=== PATIENT | female | born 1945 | race Caucasian/White ===

== ENCOUNTER 2021-06-14 14:09 | Inpatient (IN) | payer MEDICARE, OTHER ==
[2021-06-14 14:36] LABS: #Basophils 0.1 10x3/uL (0.0-0.2); #Eosinphils 0.4 10x3/uL (0.0-0.5); #Monocytes 0.8 10x3/uL (0.0-1.1); #Neutrophils 14.8 10x3/uL (1.5-8.4); %Basophils 0.7 % (0.0-2.0); %Eosinophils 2.5 % (0.0-6.0); %Lymphocytes 6.6 % (18.0-47.0); %Monocytes 4.2 % (0.0-10.0); %Neutrophils 83.5 % (40.0-75.0); Hemoglobin 8.4 g/dL (12.0-15.5); Mean Corpuscular HGB CONC 29.8 g/dL (32.0-36.0); Mean Corpuscular Hemoglobin 29.2 pg (27.0-33.0); Mean Corpuscular Volume 97.9 fl (81.6-98.3); Mean Platelet Volume 9.7 fl (7.4-10.4); Platelet Count 314 10x3/uL (150-450); RBC Distribution Width 15.4 % (11.5-14.5); Red Blood Cell (RBC) Count 2.88 10x6/uL (3.90-5.03); White Blood Cell (WBC) Count 17.7 10x3/uL (3.5-10.5)
[2021-06-14] MEDS ORDERED: Calcium Gluc 4.6 MEQ/10 ML (100 MG/ML) ONE (14:37)
[2021-06-14 14:48] LABS: INR-International Normal Ratio 1.1; PTT 25.3 sec (22.0-33.0); Prothrombin Time 12.2 sec (9.5-12.1)
[2021-06-14 14:52] LABS: ALT (SGPT) 26 U/L (8-55); AST (SGOT) 31 U/L (5-34); Albumin 3.4 g/dL (3.4-4.8); Alkaline Phosphatase 107 U/L (40-110); Anion Gap 17 mmol/L (10-20); BUN (Urea Nitrogen) 29 mg/dL (9.8-20.1); Bilirubin, Total 0.7 mg/dL (0.2-1.2); Calc. Creatinine Clearance 0 mL/min (70-130); Carbon Dioxide 28 mmol/L (23-31); Chloride 99 mmol/L (98-107); Globulin 4.1 g/dL (2.4-3.5); Glucose 363 mg/dL (83-110); Potassium 5.1 mmol/L (3.5-5.1); Protein, Total 7.5 g/dL (5.8-8.1); Sodium 139 mmol/L (136-145)
[2021-06-14 15:16] LABS: Hypochromia SLIGHT = 6-15 cells (100X) (0-5/hpf); Platelet Morphology Comment Appears Adequate
[2021-06-14 15:29] LABS: SARS-CoV-2 NAA Rapid Test Not Detected (NotDetected)
[2021-06-14] MEDS ORDERED: cefTRIAXone\\ROCEPHIN 2 GM VIAL ONE (15:30)
[2021-06-14] MEDS ORDERED: Azithromycin 500 MG VIAL ONE (15:54)
[2021-06-14] MEDS ORDERED: Communication Order-Pharmacy FS SCH (16:30)
[2021-06-14] MEDS ORDERED: Acetaminophen 325 MG TAB PO PRN (17:10)
[2021-06-14] MEDS ORDERED: Enoxaparin Sodium 40 MG/0.4 ML SYRINGE SC SCH ×2 (17:15→21:00)
[2021-06-14 17:46] LABS: Troponin I 0.019 ng/mL (< 0.028)
[2021-06-14 17:56] VITALS: BMI 52.4
[2021-06-14] MEDS ORDERED: Furosemide 40 MG/4 ML VIAL SLOW IVP SCH ×2 (18:30→21:00)
[2021-06-14] MEDS ORDERED: Dextrose 50% Abboject 50 ML SYRINGE SLOW IVP PRN (20:36)
[2021-06-14] MEDS ORDERED: Dextrose 5% in Water 1,000 ML IV PRN (20:36)
[2021-06-14 21:50] LABS: Troponin I 0.024 ng/mL (< 0.028)
[2021-06-14] MEDS: Rosuvastatin 10 MG TAB PO SCH (22:07)
[2021-06-14] MEDS: Clindamycin/D5W 900 MG in Premix Bag 1 BAG IVPB SCH (22:07)
[2021-06-14] MEDS: HumaLOG 300 UNITS/3 ML VIAL SC PRN (22:09)
[2021-06-15 04:04] LABS: #Basophils 0.1 10x3/uL (0.0-0.2); #Eosinphils 0.3 10x3/uL (0.0-0.5); #Monocytes 1.1 10x3/uL (0.0-1.1); #Neutrophils 11.1 10x3/uL (1.5-8.4); %Basophils 0.7 % (0.0-2.0); %Eosinophils 1.8 % (0.0-6.0); %Lymphocytes 13.5 % (18.0-47.0); %Monocytes 7.7 % (0.0-10.0); %Neutrophils 74.8 % (40.0-75.0); Hemoglobin 7.6 g/dL (12.0-15.5); Mean Corpuscular HGB CONC 29.9 g/dL (32.0-36.0); Mean Corpuscular Hemoglobin 28.8 pg (27.0-33.0); Mean Corpuscular Volume 96.2 fl (81.6-98.3); Mean Platelet Volume 9.8 fl (7.4-10.4); Platelet Count 275 10x3/uL (150-450); RBC Distribution Width 15.3 % (11.5-14.5); Red Blood Cell (RBC) Count 2.64 10x6/uL (3.90-5.03); White Blood Cell (WBC) Count 14.9 10x3/uL (3.5-10.5)
[2021-06-15 04:10] LABS: INR-International Normal Ratio 1.2; PTT 28.8 sec (22.0-33.0); Prothrombin Time 12.7 sec (9.5-12.1)
[2021-06-15 04:11] LABS: ALT (SGPT) 23 U/L (8-55); AST (SGOT) 24 U/L (5-34); Albumin 3.3 g/dL (3.4-4.8); Alkaline Phosphatase 96 U/L (40-110); Anion Gap 18 mmol/L (10-20); BUN (Urea Nitrogen) 30 mg/dL (9.8-20.1); Bilirubin, Total 0.4 mg/dL (0.2-1.2); Calc. Creatinine Clearance 57 mL/min (70-130); Calcium 7.6 mg/dL (7.8-10.44); Carbon Dioxide 26 mmol/L (23-31); Chloride 101 mmol/L (98-107); Globulin 3.9 g/dL (2.4-3.5); Glucose 182 mg/dL (83-110); Protein, Total 7.2 g/dL (5.8-8.1); Sodium 141 mmol/L (136-145)
[2021-06-15] MEDS: Clindamycin/D5W 900 MG in Premix Bag 1 BAG IVPB SCH ×3 (06:37→21:26)
[2021-06-15] MEDS ORDERED: Carvedilol 12.5 MG TAB PO SCH (08:00)
[2021-06-15] MEDS: Spironolactone 25 MG TAB PO SCH (08:36)
[2021-06-15] MEDS: Lisinopril 10 MG TAB PO SCH (08:37)
[2021-06-15] MEDS: Aspirin 81 mg Enteric Coated Tablet PO SCH (08:45)
[2021-06-15] MEDS ORDERED: Enoxaparin Sodium 40 MG/0.4 ML SYRINGE SC SCH (09:00)
[2021-06-15] MEDS ORDERED: Furosemide 20 MG TAB PO SCH ×2 (09:00)
[2021-06-15] MEDS ORDERED: Furosemide 40 MG/4 ML VIAL SLOW IVP SCH ×3 (09:00→13:30)
[2021-06-15] MEDS ORDERED: Acetylcysteine 800 MG/4 ML VIAL PO SCH (09:00)
[2021-06-15] MEDS ORDERED: Lisinopril 10 MG TAB PO SCH (09:00)
[2021-06-15] MEDS ORDERED: Lidocaine 1% PF 5 ML VIAL ONE (09:15)
[2021-06-15] MEDS ORDERED: Nitroglycerin 50 MG/250 ML BOT 250 ML ONE (09:16)
[2021-06-15] MEDS ORDERED: Adenosine 6 MG/2 ML VIAL ONE (09:16)
[2021-06-15] MEDS ORDERED: Verapamil 5 MG/2 ML VIAL ONE (09:16)
[2021-06-15] MEDS ORDERED: Heparin 10,000 UNITS/ 10 ML VIAL ONE (09:16)
[2021-06-15] MEDS ORDERED: Fentanyl 100 MCG/2 ML VIAL ONE (09:17)
[2021-06-15] MEDS ORDERED: Midazolam HCl 2 mg/2 ml Vial ONE (09:17)
[2021-06-15] MEDS ORDERED: Bivalirudin 250 MG VIAL ONE (09:17)
[2021-06-15] MEDS: HumaLOG 300 UNITS/3 ML VIAL SC PRN ×3 (12:13→21:27)
[2021-06-15] MEDS ORDERED: Nitroglycerin 0.4 MG TAB (25 Tab Bottle) SL PRN (12:22)
[2021-06-15] MEDS ORDERED: Acetaminophen/Codeine 30-300mg Tablet PO PRN ×2 (12:22)
[2021-06-15] MEDS ORDERED: Sodium Chloride 0.9% 200 ML IV PRN (12:22)
[2021-06-15] MEDS: Furosemide 40 MG TAB PO SCH ×2 (15:55→21:23)
[2021-06-15] MEDS ORDERED: Warfarin Sodium 10 MG TAB PO SCH (17:00)
[2021-06-15] MEDS: Rosuvastatin 10 MG TAB PO SCH (21:23)
[2021-06-16 03:51] LABS: #Basophils 0.1 10x3/uL (0.0-0.2); #Eosinphils 0.2 10x3/uL (0.0-0.5); #Monocytes 1.4 10x3/uL (0.0-1.1); #Neutrophils 13.3 10x3/uL (1.5-8.4); %Basophils 0.7 % (0.0-2.0); %Eosinophils 1.4 % (0.0-6.0); %Lymphocytes 7.2 % (18.0-47.0); %Monocytes 8.6 % (0.0-10.0); %Neutrophils 80.3 % (40.0-75.0); Hemoglobin 10.2 g/dL (12.0-15.5); Mean Corpuscular HGB CONC 31.3 g/dL (32.0-36.0); Mean Corpuscular Hemoglobin 29.7 pg (27.0-33.0); Mean Corpuscular Volume 94.8 fl (81.6-98.3); Mean Platelet Volume 9.4 fl (7.4-10.4); Platelet Count 275 10x3/uL (150-450); RBC Distribution Width 15.3 % (11.5-14.5); Red Blood Cell (RBC) Count 3.44 10x6/uL (3.90-5.03); White Blood Cell (WBC) Count 16.6 10x3/uL (3.5-10.5)
[2021-06-16 03:56] LABS: Anion Gap 20 mmol/L (10-20); BUN (Urea Nitrogen) 25 mg/dL (9.8-20.1); Calc. Creatinine Clearance 64 mL/min (70-130); Calcium 7.6 mg/dL (7.8-10.44); Carbon Dioxide 28 mmol/L (23-31); Chloride 96 mmol/L (98-107); Glucose 263 mg/dL (83-110); Potassium 3.8 mmol/L (3.5-5.1); Sodium 140 mmol/L (136-145)
[2021-06-16 04:04] LABS: INR-International Normal Ratio 1.2; Prothrombin Time 12.9 sec (9.5-12.1)
[2021-06-16] MEDS: Clindamycin/D5W 900 MG in Premix Bag 1 BAG IVPB SCH ×2 (06:19→13:40)
[2021-06-16] MEDS: Furosemide 40 MG TAB PO SCH (06:19)
[2021-06-16] MEDS: HumaLOG 300 UNITS/3 ML VIAL SC PRN ×4 (08:05→22:03)
[2021-06-16] MEDS: Spironolactone 25 MG TAB PO SCH (08:06)
[2021-06-16] MEDS: Lisinopril 10 MG TAB PO SCH (09:17)
[2021-06-16] MEDS: Aspirin 81 mg Enteric Coated Tablet PO SCH (09:17)
[2021-06-16] MEDS: Azithromycin 500 MG in Sodium Chloride 0.9% 250 ML 250 ML IVPB SCH (10:06)
[2021-06-16] MEDS: cefTRIAXone\\ROCEPHIN 2 GM in Sodium Chloride 0.9% 100 ML IVPB SCH (21:42)
[2021-06-16] MEDS: Rosuvastatin 10 MG TAB PO SCH (21:42)
[2021-06-17 01:30] LABS: Legionella Urinary Ag Negative (Negative); Strep pneumo Urine Ag NEGATIVE (NEGATIVE)
[2021-06-17] MEDS: HumaLOG 300 UNITS/3 ML VIAL SC PRN ×4 (03:46→22:16)
[2021-06-17 04:55] LABS: #Basophils 0.1 10x3/uL (0.0-0.2); #Eosinphils 0.4 10x3/uL (0.0-0.5); #Monocytes 1.3 10x3/uL (0.0-1.1); #Neutrophils 12.2 10x3/uL (1.5-8.4); %Basophils 0.8 % (0.0-2.0); %Eosinophils 2.6 % (0.0-6.0); %Lymphocytes 10.1 % (18.0-47.0); %Monocytes 8.1 % (0.0-10.0); %Neutrophils 76.9 % (40.0-75.0); Hemoglobin 10.4 g/dL (12.0-15.5); Mean Corpuscular HGB CONC 31.4 g/dL (32.0-36.0); Mean Corpuscular Volume 95.4 fl (81.6-98.3); Mean Platelet Volume 9.5 fl (7.4-10.4); Platelet Count 283 10x3/uL (150-450); RBC Distribution Width 15.3 % (11.5-14.5); Red Blood Cell (RBC) Count 3.47 10x6/uL (3.90-5.03); White Blood Cell (WBC) Count 15.9 10x3/uL (3.5-10.5)
[2021-06-17 05:08] LABS: Anion Gap 17 mmol/L (10-20); BUN (Urea Nitrogen) 29 mg/dL (9.8-20.1); Calc. Creatinine Clearance 59 mL/min (70-130); Calcium 7.6 mg/dL (7.8-10.44); Carbon Dioxide 31 mmol/L (23-31); Chloride 95 mmol/L (98-107); Glucose 318 mg/dL (83-110); Magnesium 1.9 mg/dL (1.6-2.6); Phosphorus 4.5 mg/dL (2.3-4.7); Potassium 3.6 mmol/L (3.5-5.1); Sodium 139 mmol/L (136-145)
[2021-06-17] MEDS: Levothyroxine Sodium 100 MCG TAB PO SCH (05:56)
[2021-06-17] MEDS: Levothyroxine Sodium 75 MCG TAB PO SCH (05:56)
[2021-06-17] MEDS ORDERED: Non-Formulary Medication 1 EACH (Levothyroxine Sodium [Levothyroxine] 175 MCG Capsule) PO SCH (09:00)
[2021-06-17] MEDS ORDERED: Enoxaparin Sodium 40 MG/0.4 ML SYRINGE SC SCH (09:00)
[2021-06-17] MEDS: Spironolactone 25 MG TAB PO SCH (09:39)
[2021-06-17] MEDS: Lisinopril 10 MG TAB PO SCH (09:39)
[2021-06-17] MEDS: Aspirin 81 mg Enteric Coated Tablet PO SCH (09:39)
[2021-06-17] MEDS: Azithromycin 500 MG in Sodium Chloride 0.9% 250 ML 250 ML IVPB SCH (09:39)
[2021-06-17] MEDS ORDERED: Potassium Chloride 20 MEQ TAB PO SCH (12:00)
[2021-06-17] MEDS ORDERED: Lantus 1000 UNITS/10 ML VIAL SC SCH (21:00)
[2021-06-17] MEDS: Rosuvastatin 10 MG TAB PO SCH (22:12)
[2021-06-17] MEDS: Carvedilol 12.5 MG TAB PO SCH (22:13)
[2021-06-17] MEDS: cefTRIAXone\\ROCEPHIN 2 GM in Sodium Chloride 0.9% 100 ML IVPB SCH (22:32)
[2021-06-18 05:58] LABS: #Basophils 0.1 10x3/uL (0.0-0.2); #Eosinphils 0.8 10x3/uL (0.0-0.5); #Monocytes 1.2 10x3/uL (0.0-1.1); #Neutrophils 11.5 10x3/uL (1.5-8.4); %Basophils 0.6 % (0.0-2.0); %Lymphocytes 9.5 % (18.0-47.0); %Monocytes 7.6 % (0.0-10.0); %Neutrophils 76.2 % (40.0-75.0); Hemoglobin 9.7 g/dL (12.0-15.5); Mean Corpuscular HGB CONC 30.1 g/dL (32.0-36.0); Mean Corpuscular Hemoglobin 29.4 pg (27.0-33.0); Mean Corpuscular Volume 97.6 fl (81.6-98.3); Mean Platelet Volume 9.4 fl (7.4-10.4); Platelet Count 258 10x3/uL (150-450); White Blood Cell (WBC) Count 15.1 10x3/uL (3.5-10.5)
[2021-06-18 06:11] LABS: Anion Gap 15 mmol/L (10-20); BUN (Urea Nitrogen) 27 mg/dL (9.8-20.1); Calc. Creatinine Clearance 57 mL/min (70-130); Calcium 7.2 mg/dL (7.8-10.44); Carbon Dioxide 31 mmol/L (23-31); Chloride 97 mmol/L (98-107); Glucose 280 mg/dL (83-110); Phosphorus 4.3 mg/dL (2.3-4.7); Potassium 4.1 mmol/L (3.5-5.1); Sodium 139 mmol/L (136-145)
[2021-06-18] MEDS: Levothyroxine Sodium 75 MCG TAB PO SCH (06:36)
[2021-06-18] MEDS: Levothyroxine Sodium 100 MCG TAB PO SCH (06:36)
[2021-06-18] MEDS: HumaLOG 300 UNITS/3 ML VIAL SC PRN ×4 (07:05→22:42)
[2021-06-18] MEDS ORDERED: Lantus 1000 UNITS/10 ML VIAL SC SCH ×4 (09:00→21:00)
[2021-06-18] MEDS ORDERED: Enoxaparin Sodium 120 MG/0.8 ML SYRINGE SC SCH (09:00)
[2021-06-18] MEDS: Spironolactone 25 MG TAB PO SCH (10:09)
[2021-06-18] MEDS: Furosemide 40 MG TAB PO SCH (10:09)
[2021-06-18] MEDS: Magnesium Oxide 400 MG TAB PO SCH (10:09)
[2021-06-18] MEDS: Aspirin 81 mg Enteric Coated Tablet PO SCH (10:09)
[2021-06-18] MEDS: Lisinopril 10 MG TAB PO SCH (10:09)
[2021-06-18] MEDS: Carvedilol 12.5 MG TAB PO SCH ×2 (10:09→21:48)
[2021-06-18] MEDS: Azithromycin 500 MG in Sodium Chloride 0.9% 250 ML 250 ML IVPB SCH (10:10)
[2021-06-18] MEDS: Rosuvastatin 10 MG TAB PO SCH (21:48)
[2021-06-18] MEDS: Enoxaparin Sodium 120 MG/0.8 ML SYRINGE SC SCH (21:51)
[2021-06-18] MEDS: cefTRIAXone\\ROCEPHIN 2 GM in Sodium Chloride 0.9% 100 ML IVPB SCH (22:10)
[2021-06-19] MEDS: Levothyroxine Sodium 100 MCG TAB PO SCH (05:27)
[2021-06-19] MEDS: Levothyroxine Sodium 75 MCG TAB PO SCH (05:27)
[2021-06-19] MEDS: HumaLOG 300 UNITS/3 ML VIAL SC PRN ×3 (05:34→16:39)
[2021-06-19 05:39] LABS: #Basophils 0.1 10x3/uL (0.0-0.2); #Eosinphils 0.9 10x3/uL (0.0-0.5); #Neutrophils 10.6 10x3/uL (1.5-8.4); %Basophils 0.7 % (0.0-2.0); %Eosinophils 5.9 % (0.0-6.0); %Lymphocytes 12.1 % (18.0-47.0); %Monocytes 6.7 % (0.0-10.0); %Neutrophils 73.8 % (40.0-75.0); Hemoglobin 9.8 g/dL (12.0-15.5); Mean Corpuscular HGB CONC 31.2 g/dL (32.0-36.0); Mean Corpuscular Hemoglobin 29.9 pg (27.0-33.0); Mean Corpuscular Volume 95.7 fl (81.6-98.3); Mean Platelet Volume 9.5 fl (7.4-10.4); Platelet Count 274 10x3/uL (150-450); Red Blood Cell (RBC) Count 3.28 10x6/uL (3.90-5.03); White Blood Cell (WBC) Count 14.3 10x3/uL (3.5-10.5)
[2021-06-19 05:56] LABS: Anion Gap 16 mmol/L (10-20); BUN (Urea Nitrogen) 32 mg/dL (9.8-20.1); Calc. Creatinine Clearance 52 mL/min (70-130); Carbon Dioxide 31 mmol/L (23-31); Chloride 98 mmol/L (98-107); Glucose 156 mg/dL (83-110); Phosphorus 3.8 mg/dL (2.3-4.7); Sodium 141 mmol/L (136-145)
[2021-06-19] MEDS: Calcium Carbonate 500 MG ChewTAB PO SCH ×2 (08:46→20:25)
[2021-06-19] MEDS: Azithromycin 250 MG TAB PO SCH (08:47)
[2021-06-19] MEDS: Carvedilol 12.5 MG TAB PO SCH ×2 (08:47→20:25)
[2021-06-19] MEDS: Magnesium Oxide 400 MG TAB PO SCH (08:48)
[2021-06-19] MEDS: Aspirin 81 mg Enteric Coated Tablet PO SCH (08:48)
[2021-06-19] MEDS: Lisinopril 10 MG TAB PO SCH (08:48)
[2021-06-19] MEDS: Furosemide 40 MG TAB PO SCH (08:48)
[2021-06-19] MEDS: Spironolactone 25 MG TAB PO SCH (08:49)
[2021-06-19] MEDS: Enoxaparin Sodium 120 MG/0.8 ML SYRINGE SC SCH ×2 (08:50→20:28)
[2021-06-19] MEDS: Lantus 1000 UNITS/10 ML VIAL SC SCH ×2 (08:51→22:00)
[2021-06-19] MEDS ORDERED: Milk Of Magnesia 30 ML UDCUP PO SCH (14:00)
[2021-06-19] MEDS ORDERED: Polyethylene Glycol 3350 17 GM Packet PO SCH (14:00)
[2021-06-19] MEDS: Rosuvastatin 10 MG TAB PO SCH (20:25)
[2021-06-19] MEDS: cefTRIAXone\\ROCEPHIN 2 GM in Sodium Chloride 0.9% 100 ML IVPB SCH (21:58)
[2021-06-19] MEDS: Senokot S 8.6-50 MG TAB PO SCH (22:05)
[2021-06-20 05:42] LABS: #Basophils 0.1 10x3/uL (0.0-0.2); #Eosinphils 0.7 10x3/uL (0.0-0.5); #Neutrophils 9.5 10x3/uL (1.5-8.4); %Basophils 0.9 % (0.0-2.0); %Eosinophils 5.6 % (0.0-6.0); %Lymphocytes 13.2 % (18.0-47.0); %Monocytes 7.7 % (0.0-10.0); %Neutrophils 71.8 % (40.0-75.0); Mean Corpuscular HGB CONC 31.2 g/dL (32.0-36.0); Mean Corpuscular Hemoglobin 29.5 pg (27.0-33.0); Mean Corpuscular Volume 94.7 fl (81.6-98.3); Platelet Count 254 10x3/uL (150-450); RBC Distribution Width 14.9 % (11.5-14.5); Red Blood Cell (RBC) Count 3.39 10x6/uL (3.90-5.03); White Blood Cell (WBC) Count 13.2 10x3/uL (3.5-10.5)
[2021-06-20 05:57] LABS: Anion Gap 16 mmol/L (10-20); BUN (Urea Nitrogen) 34 mg/dL (9.8-20.1); Calc. Creatinine Clearance 54 mL/min (70-130); Calcium 7.3 mg/dL (7.8-10.44); Carbon Dioxide 31 mmol/L (23-31); Chloride 98 mmol/L (98-107); Glucose 155 mg/dL (83-110); Magnesium 2.2 mg/dL (1.6-2.6); Phosphorus 4.2 mg/dL (2.3-4.7); Potassium 4.3 mmol/L (3.5-5.1); Sodium 141 mmol/L (136-145)
[2021-06-20] MEDS: Levothyroxine Sodium 100 MCG TAB PO SCH (06:21)
[2021-06-20] MEDS: Levothyroxine Sodium 75 MCG TAB PO SCH (06:21)
[2021-06-20] MEDS: Azithromycin 250 MG TAB PO SCH (10:00)
[2021-06-20] MEDS: Lisinopril 10 MG TAB PO SCH (10:01)
[2021-06-20] MEDS: Aspirin 81 mg Enteric Coated Tablet PO SCH (10:01)
[2021-06-20] MEDS: Magnesium Oxide 400 MG TAB PO SCH (10:01)
[2021-06-20] MEDS: Calcium Carbonate 500 MG ChewTAB PO SCH ×2 (10:01→20:54)
[2021-06-20] MEDS: Carvedilol 12.5 MG TAB PO SCH ×2 (10:01→20:55)
[2021-06-20] MEDS: Spironolactone 25 MG TAB PO SCH (10:01)
[2021-06-20] MEDS: Furosemide 40 MG TAB PO SCH (10:01)
[2021-06-20] MEDS: Polyethylene Glycol 3350 17 GM Packet PO SCH (10:02)
[2021-06-20] MEDS: Lantus 1000 UNITS/10 ML VIAL SC SCH ×2 (10:02→20:55)
[2021-06-20] MEDS: Enoxaparin Sodium 120 MG/0.8 ML SYRINGE SC SCH ×2 (10:02→20:55)
[2021-06-20] MEDS: Senokot S 8.6-50 MG TAB PO SCH ×2 (10:02→21:06)
[2021-06-20] MEDS: HumaLOG 300 UNITS/3 ML VIAL SC PRN ×3 (12:42→20:56)
[2021-06-20] MEDS: AMOXicillin 250 MG CAP PO SCH ×2 (16:00→20:55)
[2021-06-20] MEDS ORDERED: Dextrose 5% in Water 1,000 ML IV PRN (17:12)
[2021-06-20] MEDS ORDERED: Dextrose 50% Abboject 50 ML SYRINGE SLOW IVP PRN (17:12)
[2021-06-20] MEDS: Rosuvastatin 10 MG TAB PO SCH (20:55)
[2021-06-21 05:23] LABS: Anion Gap 15 mmol/L (10-20); BUN (Urea Nitrogen) 31 mg/dL (9.8-20.1); Calc. Creatinine Clearance 56 mL/min (70-130); Calcium 7.7 mg/dL (7.8-10.44); Carbon Dioxide 32 mmol/L (23-31); Chloride 98 mmol/L (98-107); Glucose 143 mg/dL (83-110); Magnesium 2.2 mg/dL (1.6-2.6); Phosphorus 4.6 mg/dL (2.3-4.7); Potassium 4.2 mmol/L (3.5-5.1); Sodium 141 mmol/L (136-145)
[2021-06-21 05:42] LABS: #Basophils 0.1 10x3/uL (0.0-0.2); #Eosinphils 0.7 10x3/uL (0.0-0.5); #Monocytes 0.9 10x3/uL (0.0-1.1); #Neutrophils 8.5 10x3/uL (1.5-8.4); %Basophils 0.8 % (0.0-2.0); %Eosinophils 5.7 % (0.0-6.0); %Lymphocytes 13.7 % (18.0-47.0); %Monocytes 7.2 % (0.0-10.0); %Neutrophils 71.8 % (40.0-75.0); Hemoglobin 9.9 g/dL (12.0-15.5); Mean Corpuscular HGB CONC 31.4 g/dL (32.0-36.0); Mean Corpuscular Hemoglobin 29.6 pg (27.0-33.0); Mean Corpuscular Volume 94.3 fl (81.6-98.3); Mean Platelet Volume 9.5 fl (7.4-10.4); Platelet Count 252 10x3/uL (150-450); RBC Distribution Width 14.8 % (11.5-14.5); Red Blood Cell (RBC) Count 3.34 10x6/uL (3.90-5.03); White Blood Cell (WBC) Count 11.9 10x3/uL (3.5-10.5)
[2021-06-21] MEDS: Levothyroxine Sodium 75 MCG TAB PO SCH (05:51)
[2021-06-21] MEDS: Levothyroxine Sodium 100 MCG TAB PO SCH (05:51)
[2021-06-21] MEDS: HumaLOG 300 UNITS/3 ML VIAL SC SCH ×3 (09:44→17:51)
[2021-06-21] MEDS: Spironolactone 25 MG TAB PO SCH (09:45)
[2021-06-21] MEDS: AMOXicillin 250 MG CAP PO SCH ×3 (09:45→22:55)
[2021-06-21] MEDS: Lantus 1000 UNITS/10 ML VIAL SC SCH ×2 (09:45→22:56)
[2021-06-21] MEDS: Lisinopril 10 MG TAB PO SCH (09:45)
[2021-06-21] MEDS: Calcium Carbonate 500 MG ChewTAB PO SCH ×2 (09:45→22:55)
[2021-06-21] MEDS: Carvedilol 12.5 MG TAB PO SCH ×2 (09:45→22:56)
[2021-06-21] MEDS: Enoxaparin Sodium 120 MG/0.8 ML SYRINGE SC SCH ×2 (09:45→22:54)
[2021-06-21] MEDS: Magnesium Oxide 400 MG TAB PO SCH (09:45)
[2021-06-21] MEDS: Aspirin 81 mg Enteric Coated Tablet PO SCH (09:45)
[2021-06-21] MEDS: Furosemide 40 MG TAB PO SCH ×3 (09:46→15:13)
[2021-06-21] MEDS: Polyethylene Glycol 3350 17 GM Packet PO SCH (09:46)
[2021-06-21] MEDS: Azithromycin 250 MG TAB PO SCH (09:46)
[2021-06-21] MEDS: Senokot S 8.6-50 MG TAB PO SCH ×2 (09:46→22:56)
[2021-06-21 19:03] LABS: SARS-CoV-2 PCR by NAA Not Detected (NotDetected)
[2021-06-21] MEDS: Rosuvastatin 10 MG TAB PO SCH (22:56)
[2021-06-21] MEDS: HumaLOG 300 UNITS/3 ML VIAL SC PRN (22:57)
[2021-06-22 04:09] LABS: #Basophils 0.1 10x3/uL (0.0-0.2); #Eosinphils 0.6 10x3/uL (0.0-0.5); #Neutrophils 8.4 10x3/uL (1.5-8.4); %Basophils 0.9 % (0.0-2.0); %Eosinophils 5.2 % (0.0-6.0); %Lymphocytes 13.3 % (18.0-47.0); %Monocytes 8.7 % (0.0-10.0); %Neutrophils 70.9 % (40.0-75.0); Hemoglobin 9.3 g/dL (12.0-15.5); Mean Corpuscular HGB CONC 30.7 g/dL (32.0-36.0); Mean Corpuscular Volume 94.4 fl (81.6-98.3); Mean Platelet Volume 9.6 fl (7.4-10.4); Platelet Count 235 10x3/uL (150-450); RBC Distribution Width 14.8 % (11.5-14.5); Red Blood Cell (RBC) Count 3.21 10x6/uL (3.90-5.03); White Blood Cell (WBC) Count 11.8 10x3/uL (3.5-10.5)
[2021-06-22 04:28] LABS: Anion Gap 16 mmol/L (10-20); BUN (Urea Nitrogen) 37 mg/dL (9.8-20.1); Calc. Creatinine Clearance 46 mL/min (70-130); Calcium 7.8 mg/dL (7.8-10.44); Carbon Dioxide 31 mmol/L (23-31); Chloride 97 mmol/L (98-107); Glucose 190 mg/dL (83-110); Magnesium 2.2 mg/dL (1.6-2.6); Phosphorus 5.3 mg/dL (2.3-4.7); Potassium 4.2 mmol/L (3.5-5.1); Sodium 140 mmol/L (136-145)
[2021-06-22] MEDS: Senokot S 8.6-50 MG TAB PO SCH ×2 (08:31→21:53)
[2021-06-22] MEDS: Polyethylene Glycol 3350 17 GM Packet PO SCH (08:31)
[2021-06-22] MEDS: Calcium Carbonate 500 MG ChewTAB PO SCH (08:32)
[2021-06-22] MEDS: Carvedilol 12.5 MG TAB PO SCH ×2 (08:32→21:32)
[2021-06-22] MEDS: Levothyroxine Sodium 75 MCG TAB PO SCH (08:32)
[2021-06-22] MEDS: Levothyroxine Sodium 100 MCG TAB PO SCH (08:33)
[2021-06-22] MEDS: Aspirin 81 mg Enteric Coated Tablet PO SCH (08:33)
[2021-06-22] MEDS: Magnesium Oxide 400 MG TAB PO SCH (08:34)
[2021-06-22] MEDS: Lantus 1000 UNITS/10 ML VIAL SC SCH ×2 (08:36→21:34)
[2021-06-22] MEDS: HumaLOG 300 UNITS/3 ML VIAL SC SCH ×3 (08:40→18:00)
[2021-06-22] MEDS ORDERED: AMOXicillin 250 MG CAP PO SCH (09:00)
[2021-06-22] MEDS ORDERED: Lisinopril 10 MG TAB PO SCH (11:15)
[2021-06-22] MEDS: HumaLOG 300 UNITS/3 ML VIAL SC PRN ×3 (12:41→21:35)
[2021-06-22] MEDS ORDERED: Enoxaparin Sodium 120 MG/0.8 ML SYRINGE SC SCH (21:00)
[2021-06-22] MEDS: Rosuvastatin 10 MG TAB PO SCH (21:32)
[2021-06-23 04:49] LABS: #Basophils 0.1 10x3/uL (0.0-0.2); #Eosinphils 0.5 10x3/uL (0.0-0.5); #Neutrophils 7.1 10x3/uL (1.5-8.4); %Basophils 0.8 % (0.0-2.0); %Lymphocytes 16.1 % (18.0-47.0); %Monocytes 9.7 % (0.0-10.0); %Neutrophils 67.4 % (40.0-75.0); Mean Corpuscular HGB CONC 31.3 g/dL (32.0-36.0); Mean Corpuscular Hemoglobin 29.8 pg (27.0-33.0); Mean Corpuscular Volume 95.4 fl (81.6-98.3); Mean Platelet Volume 9.8 fl (7.4-10.4); Platelet Count 218 10x3/uL (150-450); RBC Distribution Width 14.9 % (11.5-14.5); Red Blood Cell (RBC) Count 3.02 10x6/uL (3.90-5.03); White Blood Cell (WBC) Count 10.6 10x3/uL (3.5-10.5)
[2021-06-23] MEDS: HumaLOG 300 UNITS/3 ML VIAL SC PRN ×3 (05:00→17:11)
[2021-06-23] MEDS: Levothyroxine Sodium 100 MCG TAB PO SCH (05:00)
[2021-06-23] MEDS: Levothyroxine Sodium 75 MCG TAB PO SCH (05:00)
[2021-06-23 05:16] LABS: Anion Gap 14 mmol/L (10-20); BUN (Urea Nitrogen) 38 mg/dL (9.8-20.1); Calc. Creatinine Clearance 52 mL/min (70-130); Calcium 7.7 mg/dL (7.8-10.44); Carbon Dioxide 32 mmol/L (23-31); Chloride 98 mmol/L (98-107); Glucose 151 mg/dL (83-110); Magnesium 2.3 mg/dL (1.6-2.6); Phosphorus 4.9 mg/dL (2.3-4.7); Potassium 4.3 mmol/L (3.5-5.1); Sodium 140 mmol/L (136-145)
[2021-06-23] MEDS: Polyethylene Glycol 3350 17 GM Packet PO SCH (08:12)
[2021-06-23] MEDS: Carvedilol 12.5 MG TAB PO SCH ×2 (08:12→08:19)
[2021-06-23] MEDS: Aspirin 81 mg Enteric Coated Tablet PO SCH (08:12)
[2021-06-23] MEDS: Senokot S 8.6-50 MG TAB PO SCH (08:12)
[2021-06-23] MEDS: Magnesium Oxide 400 MG TAB PO SCH (08:12)
[2021-06-23] MEDS: HumaLOG 300 UNITS/3 ML VIAL SC SCH ×3 (08:14→17:11)
[2021-06-23] MEDS: Lantus 1000 UNITS/10 ML VIAL SC SCH (08:16)
[2021-06-23] MEDS ORDERED: Lisinopril 10 MG TAB PO SCH (09:00)
[2021-06-23] MEDS ORDERED: Furosemide 20 MG TAB PO SCH (13:00)
[2021-06-23 17:17] VITALS: BP 153/65; TEMP 97.5
[2021-06-24] MEDS ORDERED: Furosemide 40 MG TAB PO SCH (07:30)
== END 2021-06-23 17:45 | disposition short-term general hospital (02) | DRG 193 ==
LOC: CSHERS 14:09 → CSHIMCU 17:34 → CSHTELE 06-16 15:28
PROVIDERS: ADMIT Internal Medicine; ATTEND Family Medicine
DX: J18.9 Pneumonia, unspecified organism (principal); J96.01 Acute respiratory failure with hypoxia; J81.0 Acute pulmonary edema; I47.1 Supraventricular tachycardia; Z68.43 Body mass index [BMI] 50.0-59.9, adult; L03.119 Cellulitis of unspecified part of limb; Z20.822 Contact with and (suspected) exposure to COVID-19; G47.33 Obstructive sleep apnea (adult) (pediatric); E66.01 Morbid (severe) obesity due to excess calories; I12.9 Hypertensive chronic kidney disease with stage 1 through stage 4 chronic kidney disease, or unspecified chronic kidney disease; E11.22 Type 2 diabetes mellitus with diabetic chronic kidney disease; E03.9 Hypothyroidism, unspecified; I48.91 Unspecified atrial fibrillation; E78.5 Hyperlipidemia, unspecified; I05.0 Rheumatic mitral stenosis; I25.10 Atherosclerotic heart disease of native coronary artery without angina pectoris; I35.0 Nonrheumatic aortic (valve) stenosis; E83.51 Hypocalcemia; Z90.89 Acquired absence of other organs; Z90.710 Acquired absence of both cervix and uterus; Z88.1 Allergy status to other antibiotic agents
CPT/HCPCS: 36415; 36416; 36430; 71045; 80048; 80053; 83036; 83605; 83735; 83880; 84100; 84145; 84443; 84484; 85025; 85610; 85730; 86140; 86850; 86900; 86901; 87040; 87449; 87899; 93005; 94660; 94760; 96374; 96375; 97139; J0153; J0456; J0583; J0610; J0696; J1644; J1650; J1815; J1940; J2250; J3010; J3490; J7050; P9016; U0002; U0003; U0005